=== PATIENT | female | born 1980 | race Two or more races ===

== ENCOUNTER 2016-07-09 10:55 | Observation (INO) | payer MEDICAID ==
[~2016-07-09] VITALS: Ht 172.7 cm; Wt 90.7 kg
[~2016-07-09 10:55] MED LIST: PREN-96 PO
[2016-07-09] MEDS ORDERED: MAGNESIUM SULFATE 40MG/ML 1,000 ML IV SCH ×2 (11:53→13:30)
[2016-07-09] MEDS ORDERED: LACTATED RINGER'S 1,000 ML IV SCH (11:53)
[2016-07-09] MEDS ORDERED: hydrALAZINE HCL 20 MG/ML VL IV ONE ×2 (12:00→13:30)
[2016-07-09 12:54] LABS: INR 0.95 (0.9-1.15); Partial Thromboplastin Time 26.1 sec (22.64-33.71); Prothrombin Time 9.8 sec (9.37-12.3)
[2016-07-09 13:06] LABS: Urine Bilirubin Negative (Negative); Urine Blood Negative /uL (Negative); Urine Color Yellow (Yellow); Urine Glucose Normal (Normal); Urine Ketone Negative (Negative); Urine Mucus FEW (None Seen); Urine Nitrite Negative (Negative); Urine RBC 1 /hpf (0 - 4); Urine Squamous Epithelial Cell FEW /hpf (<5); Urine Urobilinogen Normal (Negative); Urine pH 7.5 (5.0-8.0)
[2016-07-09 13:06] LABS: Basophils # (auto) 0 uL; Basophils % (auto) 0.4 % (0.0-2.0); Eosinophils # (auto) 0.2 uL; Eosinophils % (auto) 2.5 % (0.0-7.0); Hematocrit 39.7 % (36.0-46.0); Hemoglobin 12.9 g/dL (12.2-16.2); Lymphocytes # (auto) 1.9 uL; Lymphocytes % (auto) 24.9 % (10.0-50.0); Mean Corpuscular Hemoglobin 30.8 pg (28.0-32.0); Mean Corpuscular Hgb Conc. 32.5 g/dL (32.0-36.0); Mean Corpuscular Volume 94.8 fL (80.0-100.0); Mean Platelet Volume 8.3 fL (7.4-10.4); Monocytes # (auto) 0.6 uL; Monocytes % (auto) 8.1 % (0.0-12.0); Neutrophils # (auto) 4.9 uL; Neutrophils % (auto) 64.1 % (37.0-80.0); Platelet Count (auto) 214 10^3/uL (140-450); Red Cell Distribution Width 13.2 % (11.6-16.0); White Blood Cell 7.7 10^3/uL (4.4-10.8)
[2016-07-09 13:15] LABS: Albumin 2.3 g/dL (3.4-5.0); Alkaline Phosphatase 114 U/L (45-117); Anion Gap 8 (5-15); Aspartate Aminotransferase 20 U/L (15-37); BUN/Creatinine Ratio 20.5; Bilirubin, Total < 0.1 mg/dL (0.2-1.0); Blood Urea Nitrogen 8 mg/dL (7-18); Carbon Dioxide 21 mmol/L (21-32); Chloride 111 mmol/L (98-107); GFR African American 242 mL/min; GFR Non-African American 200 mL/min; Glucose 73 mg/dL (74-106); Potassium 4.1 mmol/L (3.5-5.1); Sodium 140 mmol/L (136-145); Uric Acid 4.1 mg/dL (2.6-6.0)
[2016-07-09] MEDS ORDERED: BETAMETHASONE ACET (6MG/ML) 5ML VIAL IM ONE (14:00)
[2016-07-09] MEDS ORDERED: BETAMETHASONE ACET (6MG/ML) 5ML VIAL ONE (14:37)
[2016-07-09] MEDS ORDERED: ACETAMINOPHEN 325 MG TAB PO ONE (15:45)
== END 2016-07-09 17:10 | disposition home or self-care (01) | DRG 566 ==
LOC: LDRP 10:55
PROVIDERS: ADMIT Specialist; ATTEND Specialist
DX: O14.93 Unspecified pre-eclampsia, third trimester (principal); O26.893 Other specified pregnancy related conditions, third trimester; Z3A.32 32 weeks gestation of pregnancy; R51 Headache
CPT/HCPCS: 36415; 51702; 59025; 76805; 80053; 81001; 81002; 83735; 84550; 85025; 85362; 85379; 85610; 85730; G0378; G0434; J0360; J0702; J3475; 96361; 96365; 96366; 96372

== ENCOUNTER → 2016-07-24 | Outpatient (CLI) | payer MEDICAID | END | disposition home or self-care (01) | LOC: LAB 15:59 | PROVIDERS: ATTEND Specialist | DX: N39.0 Urinary tract infection, site not specified (principal) | CPT/HCPCS: 87086 ==